=== PATIENT | male | born 1950 | race Caucasian/White ===

== ENCOUNTER → 2016-05-02 | Outpatient (CLI) | payer MEDICARE, OTHER ==
[~2016-05-02] MED LIST: CARAFATE1 G PO; KEFLEX PO; KEFLEX500 MG PO; LORTAB 5/500 TA1 TA2 PO; MULTI-DAY1 TAB PO; NOVOLIN N100 U/ML INJ; NOVOLIN N100 UNIT/1; NOVOLOG100 U/M2; NOVOLOG100 U/M3; ZOCOR20 MG PO
[2016-05-02 11:55] LABS: BLOOD UREA NITROGEN 17 mg/dL (9-23); CALCIUM SERUM 9.2 mg/dL (8.4-10.2); CARBON DIOXIDE 25 mmol/L (22-31); CHLORIDE 103 mmol/L (100-111); CHOLESTEROL 172 mg/dL (0-200); GLOM FILT RATE Estimated ABOVE60 mL/min (>60); GLUCOSE FASTING 118 mg/dL (70-110); HDL CHOLESTEROL 48 mg/dL (29-75); LDL CHOLESTEROL 111 mg/dL (-130); LDL/HDL RATIO 2 RATIO (0-4); POTASSIUM 4.6 mmol/L (3.5-5.1); SODIUM 138 mmol/L (135-145); TRIGLYCERIDES 66 mg/dL (10-160)
== END | disposition home or self-care (01) ==
LOC: CLAB 10:32
PROVIDERS: Internal Medicine Endocrinology, Diabetes & Metabolism
DX: E11.65 Type 2 diabetes mellitus with hyperglycemia (principal); E10.9 Type 1 diabetes mellitus without complications
CPT/HCPCS: 36415; 80048; 80061; 83036

== ENCOUNTER → 2016-09-05 | Outpatient (CLI) | payer MEDICARE, OTHER ==
[2016-09-05 15:14] LABS: ALBUMIN SERUM 3.9 g/dL (3.5-5.0); BILIRUBIN,TOTAL 0.4 mg/dL (0.2-2.0); CALCIUM SERUM 9.1 mg/dL (8.4-10.2); GLOM FILT RATE Estimated 79.2 mL/min (>60); POTASSIUM 4.3 mmol/L (3.5-5.1); PROTEIN TOTAL SERUM 6.6 g/dL (6.0-8.3)
[2016-09-07 05:01] LABS: MICROALB UR (PNL) 0.9 mg/dL (***)
== END | disposition home or self-care (01) ==
LOC: CLAB 13:56
PROVIDERS: Internal Medicine Endocrinology, Diabetes & Metabolism
DX: E11.65 Type 2 diabetes mellitus with hyperglycemia (principal)
CPT/HCPCS: 36415; 80053; 80061; 82043; 82570; 83036